=== PATIENT | female | born 1950 | race Caucasian/White ===

== ENCOUNTER 2016-11-08 09:32 | Outpatient (CLI) | payer OTHER ==
[2016-11-08 10:25] LABS: eGFR (African) > 60; eGFR (Non-African) > 60
== END 2016-11-08 09:33 ==
LOC: LAB 09:32
PROVIDERS: ATTEND Family Medicine
DX: E78.2 Mixed hyperlipidemia (principal); G40.909 Epilepsy, unspecified, not intractable, without status epilepticus
CPT/HCPCS: 36415; 80053; 80061; 80185; 80188

== ENCOUNTER 2018-10-30 10:14 | Outpatient (CLI) | payer OTHER ==
[2018-10-30 11:09] LABS: eGFR (Non-African) > 60
== END 2018-10-30 10:19 | disposition home or self-care (01) ==
LOC: LAB 10:14
PROVIDERS: ATTEND Family Medicine
DX: Z13.6 Encounter for screening for cardiovascular disorders (principal)
CPT/HCPCS: 36415; 80053; 80061

== ENCOUNTER 2018-11-01 09:29 | Outpatient (CLI) | payer OTHER ==
--- NOTE | 2018-11-01 15:18 | Diagnostic Imaging Report ---
<p>Your browser does not support iframes.</p> JALIL IBARRA [place] [id number] [address] [address] Report Submission Date: Nov 01, 2018 12:21:57 PM CDT Patient Study Name: ANY TRINH Date: Nov 01, 2018 12:00:00 AM CDT Modality Type: DEXA\OT Gender: F Description: DEXA : 52 Institution: [facility] Physician: JALIL IBARRA Examination: Bone density History: Assess bone mineralization Comparison exams: None available Technique: DEXA protocol Findings: Average bone mineral density from L1 through L4: 1.107 grams cm2. T score: -0.8 Average bone mineral density of the left femoral neck: 0.808 grams cm2. T score: -1.7; Total left hip T score: -0.3 Average bone mineral density of the right femoral neck: 0.684 grams cm2. T score: -2.5 Total right hip T score: -1.1 Impression: Normal lumbar spine mineralization for age Left femoral neck osteopenia. Borderline right femoral neck osteoporosis. Electronically signed on Nov 01, 2018 12:21:57 PM CDT by: Harish BA
== END 2018-11-01 09:46 ==
LOC: RAD 09:29
PROVIDERS: ATTEND Family Medicine
DX: M81.8 Other osteoporosis without current pathological fracture (principal); M85.852 Other specified disorders of bone density and structure, left thigh; Z78.0 Asymptomatic menopausal state
CPT/HCPCS: 77080